=== PATIENT | male | born 1985 | race Caucasian/White ===

== ENCOUNTER 2018-11-23 08:39 | Emergency (ER) | payer OTHER ==
[~2018-11-23] VITALS: Ht 175.3 cm; Wt 84.8 kg
[2018-11-23] MEDS ORDERED: ADDERALL XR 1515 MG PO (08:49)
[2018-11-23 09:58] LABS: ABSOLUTE NEUTROPHILS 4.5 thou/uL (1.4-8.2); BASOPHILS 0.6 % (0.0-2.0); EOSINOPHILS 3.6 % (0.0-3.0); HEMATOCRIT 41.8 % (42.0-52.0); HEMOGLOBIN 14.5 gm/dL (14.0-18.0); LYMPHOCYTES 17.1 % (24.0-44.0); MCH 30.1 pg (26.0-34.0); MCHC 34.7 g/dL (28.0-37.0); MCV 86.7 fL (80.0-100.0); MONOCYTES 8.3 % (1.0-8.0); PLATELET COUNT 189 thou/uL (150-400); POLYS 70.4 % (36.0-66.0); RBC 4.82 mil/uL (4.50-6.00); RDW 12.6 % (10.5-14.5); WBC 6.4 thou/uL (4.0-11.0)
[2018-11-23 10:05] LABS: CALCIUM 9.4 mg/dL (8.5-10.1); CREATININE 0.9 mg/dL (0.7-1.3); POTASSIUM 3.8 mmol/L (3.5-5.1)
[2018-11-23 11:31] VITALS: BP 115/64
--- NOTE | 2018-11-27 17:06 | PATH ---
[facility] [place] [address] PATHOLOGY RPT PROCEDURE Name: WONG LEIAS Room #: DEP Alexia#: [id number] Admission: 11/23/18 Date of : 87 Discharge: 11/23/18 Report #: [id number] Path Case #: [id number] [facility] Accession Number: [id number] . 01 Material submitted: . PART A: esophagus - ESOPHAGEAL BIOPSY R/O EOSINOPHILIC ESOPHAGITIS PART B: duodenum - BIOPSY DUODENUM R/O CELIAC . 01 Clinical history: . Pre-OP DX: Food impaction Post-OP DX: Suspected EOE, removal of impacted food bolus, erythema of folds in 2nd portion of duodenum . 02 Diagnosis: A. Squamous mucosa, esophagus rule out eosinophilic esophagitis, endoscopic biopsy: - Moderate active esophagitis with foci of ulceration and numerous intraepithelial eosinophils ranging between 20 to 30/HPF, see comment. - PAS-D fungal special stain pending, to be reported as an addendum. . B. Small bowel mucosa, duodenum, endoscopic biopsy: - No diagnostic abnormalities. - Negative for villous blunting or increase in intraepithelial lymphocytes. LBQ 11/24/2018 1421 Local . 02 Comment: Examination of the esophageal biopsy tissue shows squamous mucosa with a marked number of intraepithelial eosinophils. Although eosinophils are commonly encountered in inflammation due to reflux esophagitis, the eosinophils in the present specimen are numerous, exceeding 20 to 30/HPF. Apart from reflux esophagitis, potential etiologies for the histologic pattern include allergic and collagen vascular diseases, fungal or parasitic infections, and eosinophilic esophagitis (idiopathic). Please correlate with clinical and endoscopic findings. (IUV/db; 11/24/2018) . 02 Addendum: . This addendum is issued subsequent to reviewing a properly controlled PAS-D fungal special stain performed on block A1. It shows no definite fungal elements present within the intact squamous epithelium. The original interpretation as well as diagnosis remains unchanged. (IUV/db; 11/27/2018) . Professional services performed by [facility] at [facility], [address] [place] [address] , [place] [address]. Technical services performed by [facility] at [address] [place] [address], [address], [place] [address]. [place] [address] PATHOLOGY RPT PROCEDURE Name: FREDY ELIASLatrell Rodriguez Room #: DEP LULA Hale#: [id number] Admission: 11/23/18 Date of : 87 Discharge: 11/23/18 Report #: [id number] Path Case #: [id number] LBQ/11/27/2018 Addendum Electronically Signed by Kaylie Melo MD, Pathologist . 02 Electronically signed: . Kaylie Melo MD, Pathologist NPI- [id number] . 01 Gross description: . A. Received in formalin labeled "Biehler, Bricen, esophageal BX, rule out EOE," are multiple segments of lorenzo soft tissue measuring 0.5 x 0.4 x 0.1 cm in aggregate dimensions. The specimen is filtered and entirely submitted in cassette A1. . B. Received in formalin labeled "Biehler, Bricen, BX duodenum, rule out celiac," is a single segment of lorenzo soft tissue measuring 0.5 cm in maximum dimension. The specimen is entirely submitted in cassette B1. (TSD; 11/23/2018) TOB/TOB 11/23/2018 2257 Local . 02 Pathologist provided ICD-10: K20.9, K22.10 . 02 CPT . 951408, 799513, 284408 Specimen Comment: A courtesy copy of this report has been sent to Specimen Comment: [phone], . Specimen Comment: Report sent to / DR MCKEON Performed at: [address], [place] [id number] MD Tony Patton MD Phone: [phone] Performed at: [address] [id number] MD Kaylie Melo MD Phone: [phone]
--- NOTE | 2018-12-06 04:45 | P ---
[facility] [place], [place] [address] PROCEDURE REPORT Name: FREDY ELIASLatrell Jennifer Room #: DEP [facility]#: [id number] Admission: 11/23/18 Attend Phys: Discharge: 11/23/18 Date of : 87 Report #: [id number] THIS REPORT FOR: //name// CC: FAM unknown Hua Velazquez DATE OF SERVICE: 11/23/2018 PROCEDURE: Esophagogastroduodenoscopy with biopsies and esophageal food bolus impaction removal. INDICATION FOR PROCEDURE: The patient was eating at about 2:00 this morning when he noted that a piece of chicken got stuck in his esophagus. He suspects it is his upper esophagus where the food is lodged, but he has been unable to manage his oral secretions since this occurred. A similar event happened about 5 years ago and required removal of the esophageal food bolus endoscopically also. Informed consent for this procedure was obtained prior to the administration of any medication. The risks of the procedure, which include bleeding, perforation, infection, complications of sedation and the possibility I could miss something were explained to the patient and his parents who were present in the room and he has indicated his consent to proceed with this EGD by signing. DESCRIPTION OF PROCEDURE: With the patient in the left lateral decubitus position and the kind assistance of anesthesia with deep sedation, the Olympus upper videoscope was introduced through the upper esophageal sphincter and advanced under direct visualization to the distal esophagus where the food bolus is noted to be localized. It is gently nudged into the stomach with very little pressure. There is some mild erythema of this lower esophagus. I do not see any evidence of any actual lesion that might have caused the food bolus to be impacted such as a stricture or Schatzki ring in this area. The scope was then advanced down into the stomach and down to the third portion of the duodenum. Findings are noted on withdrawal of the scope. The duodenum appears normal except for some increased erythema of the tips of the folds. Biopsies were obtained x 2 for histopathology to evaluate for possible celiac sprue. Pylorus, normal mucosa. Antrum, normal mucosa. Body, normal mucosa. Cardia and fundus, normal mucosa. Retroflex view did not reveal any abnormalities. The food bolus is seen present in the proximal stomach. I did not see any other abnormalities of the cardia that might explain the dysphagia. The scope was again drawn into the esophagus. The Z-line is appropriately located at the top of the gastric folds. There were a few very shallow erosions in the distal esophagus from the food bolus impaction. The remaining esophageal mucosa appears normal cellularly. There are numerous circumferential rings that are highly suggestive of eosinophilic esophagitis. There were also some linear markings that are consistent with eosinophilic esophagitis. Biopsies were obtained x [address] [address] PROCEDURE REPORT Name: WONG ELIAS Room #: DEP Alexia#: [id number] Admission: 11/23/18 Attend Phys: Discharge: 11/23/18 Date of : 87 Report #: [id number] throughout the esophagus to evaluate for possible eosinophilic esophagitis that may have explained the dysphagia. Good hemostasis was noted after all biopsies. The scope was withdrawn. The patient went to the recovery room in stable condition. He tolerated the procedure well. IMPRESSION: 1. Suspected eosinophilic esophagitis. Biopsies pending. 2. Food bolus impaction in the distal esophagus gently nudged into the stomach with the scope without difficulty. 3. Normal stomach. 4. Erythema of the tips of the folds of the second portion of the duodenum, biopsied as above for histopathology to exclude celiac sprue. RECOMMENDATIONS: My recommendations are to await the biopsy results. If this is eosinophilic esophagitis, he will need a course of steroids, specifically he will need fluticasone 2 sprays b.i.d. and these are to be sprayed into his mouth and swallowed not inhaled for 3 months. He would also very likely benefit from a FOODMOP diet. We will follow up with him with the results of the biopsies. Thank you very much once again for allowing me to participate in his care. <ELECTRONICALLY SIGNED> By: Lucia Birmingham DO 12/06/18 0445 [id number] Lucia Birmingham DO /nt
== END 2018-11-23 14:20 | disposition home or self-care (01) ==
LOC: ER 08:39
PROVIDERS: Emergency Medicine
DX: T18.128A Food in esophagus causing other injury, initial encounter (principal); Z87.19 Personal history of other diseases of the digestive system; Y92.89 Other specified places as the place of occurrence of the external cause
CPT/HCPCS: 62110; 62900; 70005